=== PATIENT | female | born 1960 | race Caucasian/White ===

== ENCOUNTER 2020-03-28 09:26 | Outpatient (REF) | payer BC, SELFPAY ==
--- NOTE | 2020-03-28 08:20 | PAPFT_PTH ---
PATIENT: Catina Bunn LOC: [facility] U#:[id number] AGE/SX: 59/F ROOM: RE03/28/[address]: Eusebia Benito APRN : 1960 BED: DIS: 03/28/2020 SPEC #: [id number] RECD: 03/28/20 12:41 STATUS: ABISAI REQ #: [id number] JOY: 03/28/20 08:[address]: Eusebia Benito DEPT: [facility] Cytology RECD BY: Lola Arambula ENTERED: 03/28/20 12:42 SP TYPE: PAPFT OTHR DR: Mariela Coello MD Tissues: 1 - CX/ENDOCX FOR PAP SMEARS Procedures: PAP THIN PREP/UVM Screening HPV DNA PROBE Comments: [id number] (BRISTOW)
== END 2020-03-28 09:46 ==
LOC: LBN 09:26
PROVIDERS: PCP Family Medicine
DX: Z12.4 Encounter for screening for malignant neoplasm of cervix (principal); Z11.51 Encounter for screening for human papillomavirus (HPV)
CPT/HCPCS: 88142; 87624

== ENCOUNTER 2020-07-04 01:37 | Outpatient (CLI) | payer BC, SELFPAY ==
[2020-07-05 11:50] LABS: COVID-19 RT-PCR UVMMC Result Negative (Negative)
== END 2020-07-04 01:38 | disposition home or self-care (01) ==
LOC: LBO 01:38
PROVIDERS: PCP Family Medicine; Visit Provider Family Medicine
DX: Z20.822 Contact with and (suspected) exposure to COVID-19 (principal)
CPT/HCPCS: U0003

== ENCOUNTER 2020-07-12 16:04 | Outpatient (REF) | payer BC, SELFPAY | END 2020-07-12 16:05 | disposition home or self-care (01) | LOC: LBN 16:04 | PROVIDERS: PCP Family Medicine; Visit Provider Physician Assistant | DX: B37.89 Other sites of candidiasis (principal); L29.8 Other pruritus; N89.8 Other specified noninflammatory disorders of vagina | CPT/HCPCS: 87480; 87510; 87660 ==

== ENCOUNTER 2020-07-18 23:07 | Outpatient (REF) | payer BC, SELFPAY | END 2020-07-18 23:08 | disposition home or self-care (01) | LOC: LBN 23:07 | PROVIDERS: PCP Family Medicine; Visit Provider Physician Assistant | DX: N39.0 Urinary tract infection, site not specified (principal) | CPT/HCPCS: 87086 ==

== ENCOUNTER 2021-10-02 03:26 | Outpatient (CLI) | payer BC, SELFPAY | END 2021-10-02 03:27 | disposition home or self-care (01) | LOC: LBO 03:27 | PROVIDERS: PCP Family Medicine; Visit Provider Family Medicine ==

== ENCOUNTER 2021-10-09 04:11 | Outpatient (CLI) | payer BC, SELFPAY ==
[2021-10-09 14:28] LABS: Anion Gap 7.7 mmol/L (3-11); BUN 12 mg/dL (7-18); CO2 31.3 mmol/L (21.0-32.0); CREATININE 0.7 mg/dL (0.55-1.02); Calcium 9.6 mg/dL (8.5-10.1); Chloride 103 mmol/L (98-107); Glucose 112 mg/dL (74-106); Potassium 3.5 mmol/L (3.5-5.1); Sodium 142 mmol/L (136-145); TSH (W/Ref FT4) 1.45 uIU/mL (0.36-3.74)
[2021-10-09 17:03] LABS: Calculated LDL 164 mg/dL (<100); Cholesterol 271 mg/dL (<200); HDL Cholesterol 83 mg/dL (40-60); Triglyceride 124 mg/dL (<150)
[2021-10-10 09:52] LABS: Hepatitis C Ab w Rflx HCV PCR Negative (Negative)
[2021-10-10 10:09] LABS: HIV-1/2 Ag & Ab Screen Negative (Negative)
== END 2021-10-09 04:12 | disposition home or self-care (01) ==
LOC: LBO 04:11
PROVIDERS: PCP Family Medicine; Visit Provider Family Medicine
DX: Z00.00 Encounter for general adult medical examination without abnormal findings (principal); R00.0 Tachycardia, unspecified; Z13.220 Encounter for screening for lipoid disorders; Z11.4 Encounter for screening for human immunodeficiency virus [HIV]; Z11.59 Encounter for screening for other viral diseases
CPT/HCPCS: 36415; 80048; 80061; 86803; 87389; 84443

== ENCOUNTER 2022-11-21 13:56 | Outpatient (REF) | payer BC, SELFPAY ==
[2022-11-21 15:01] LABS: Bacteria Negative HPF (Negative); C & S Indicated? C&S Done As Ordered; Casts Negative LPF (Negative); Crystals Negative HPF (Negative); Epithelial Cells Rare HPF (Negative); Mucus Negative (Negative); RBC >50 HPF (0-2)
== END 2022-11-21 13:57 | disposition home or self-care (01) ==
LOC: NCHCN 13:56
PROVIDERS: PCP Family Medicine; Visit Provider Physician Assistant Medical
DX: R30.0 Dysuria (principal); R82.998 Other abnormal findings in urine
CPT/HCPCS: 81015; 87086

== ENCOUNTER 2023-01-29 02:46 | Outpatient (CLI) | payer BC, SELFPAY ==
[2023-01-29 14:06] LABS: Anion Gap 9.8 mmol/L (3-11); BUN 15 mg/dL (7-18); CO2 28.2 mmol/L (21.0-32.0); CREATININE 0.9 mg/dL (0.55-1.02); Calcium 9.5 mg/dL (8.5-10.1); Chloride 98 mmol/L (98-107); Estimated GFR 73.19 (mL/min/1.73m2); Glucose 132 mg/dL (74-106); Potassium 3.2 mmol/L (3.5-5.1); Sodium 136 mmol/L (136-145)
== END 2023-01-29 02:47 | disposition home or self-care (01) ==
LOC: LBO 02:46
PROVIDERS: PCP Family Medicine; Visit Provider Family Medicine
DX: I10 Essential (primary) hypertension (principal); F41.1 Generalized anxiety disorder
CPT/HCPCS: 36415; 80048

== ENCOUNTER 2023-03-20 17:10 | Outpatient (REF) | payer BC, SELFPAY ==
--- NOTE | 2023-03-20 14:20 | SKI_PTH ---
PATIENT: Catina Bunn LOC: [facility] U#:[id number] AGE/SX: 62/F ROOM: RE03/20/[address]: Ju Villareal : 1960 BED: DIS: 03/20/2023 SPEC #: [id number] RECD: 03/21/23 12:27 STATUS: ABISAI REEh #: [id number] JOY: 03/20/23 14:[address]: Ju Villareal DEPT: Surgical Specimen RECD BY: Nicki Espinosa Tissues: 1 - SKIN BIOPSY(SHAVE/PUNCH) Procedures: SKIN LEVEL 4 Comments: [id number]
== END 2023-03-20 17:11 | disposition home or self-care (01) ==
LOC: LBN 17:10
PROVIDERS: PCP Family Medicine; Visit Provider Family Medicine
DX: L82.1 Other seborrheic keratosis (principal)
CPT/HCPCS: 88305

== ENCOUNTER 2023-07-05 09:21 | Emergency (ER) | payer BC, SELFPAY ==
--- NOTE | 2023-07-05 09:15 | RT.EKG_ITS ---
APPROVED REPORT Exam: Resting ECG Reason for Exam: chest pain Patient Location: E HR:110 bpm ECG Measurements Heart Rate 110 AXIS OR 150 P 74 QRSd 76 QRS 56 QT 334 T 57 QTc 451 Conclusion Sinus tachycardia...rate> 99 Low voltage, precordial leads...precordial leads <1.0mV
[2023-07-05 09:27] VITALS: BP 139/62; PULSE 112; RESP 18; TEMP 37.4; O2SAT 96
[2023-07-05 09:54] LABS: Abs Immature Grans 0.01 10^3/uL (0.0-0.06); Absolute Basophil Count 0.01 10^3/uL (0.0-0.2); Absolute Eosinophil Count 0.03 10^3/uL (0.0-0.7); Absolute Monocyte Count 0.17 10^3/uL (0.1-0.8); Absolute Neutrophil Count 1.51 10^3/uL (1.2-6.7); Basophils % 0.4; Eosinophils % 1.3; Immature Grans % 0.4; Lymphocytes % 22.4; MCH 31.8 pg (27.0-33.0); MCHC 33.1 % (32.0-36.0); MCV 96 fL (80-95); MPV 10.1 fL (8.0-11.0); Monocytes % 7.6; Neutrophils % 67.9; RBC 1.48 10^6/uL (3.93-5.22); RDW 11.8 % (11.7-14.6); RDW-SD 41.1 fL; WBC 2.23 10^3/uL (4.4-10.8)
--- NOTE | 2023-07-05 10:00 | W.ED.GENAD ---
HPI General Date/Time Provider Initiated Documentation: 07/05/23 09:23. HPI Narrative: This 62-year-old female presents with acute onset of shortness of breath, lightheadedness, racing heartbeat at approximately 45 minutes prior to arrival. She called EMS was administered adenosine with a reported rhythm of SVT prior to arrival. Patient was alert and oriented at time of initial assessment She states she has had similar episodes x 2 over the course of the past year. She denies caffeine or onset during exertion. That she was seated at her desk when her symptoms began today. She denies any stressors caffeine consumption today. She has recent lites, surgeries, long drives. She denies any chest pain associated. She states that she exercises regularly and has not had any exertional chest pain or shortness of breath. She has a history of hypertension but no history of hyperlipidemia and no early family history of coronary artery disease. At time of my assessment she is asymptomatic with sinus tachycardia Related Data Home Medications Medication Instructions Recorded Confirmed amitriptyline 25 mg tablet 25 mg PO DAILY #90 tabs 09/19/22 03/20/23 venlafaxine 75 mg capsule,extended 75 mg PO DAILY #90 caps 09/19/22 03/20/23 release 24 hr ondansetron HCl 4 mg tablet 4 mg PO Q8H PRN nausea and 02/22/23 03/20/23 vomiting #30 tabs losartan 50 mg-hydrochlorothiazide 1 tab PO DAILY #90 tabs 05/03/23 12.5 mg tablet Previous Rx's Medication Instructions Recorded amitriptyline 25 mg tablet 25 mg PO DAILY #90 tabs 09/19/22 venlafaxine 75 mg capsule,extended 75 mg PO DAILY #90 caps 09/19/22 release 24 hr ondansetron HCl 4 mg tablet 4 mg PO Q8H PRN nausea and 02/22/23 vomiting #30 tabs losartan 50 mg-hydrochlorothiazide 1 tab PO DAILY #90 tabs 05/03/23 12.5 mg tablet Allergies Allergy/AdvReac Type Severity Reaction Status Date / Time No Known Allergies Allergy Verified 03/20/23 15:47 General Stated Complaint: Palpitatns BRANDON: 2 Course Vital Signs Vital signs: Vital Signs Temperature 37.4 C 07/05/23 09:27 Pulse 112 H 07/05/23 09:27 Respiratory Rate 18 07/05/23 09:27 Blood Pressure 139/62 07/05/23 09:27 Pulse Oximetry 96 07/05/23 09:27 Temperature 37.4 C 07/05/23 09:27 Temperature Source Tympanic 07/05/23 09:27 Pulse 112 H 07/05/23 09:27 Respiratory Rate 18 07/05/23 09:27 Respiratory Effort Normal 07/05/23 09:31 Blood Pressure 139/62 07/05/23 09:27 Blood Pressure Position Sitting 07/05/23 09:27 Pulse Oximetry 96 07/05/23 09:27 Oxygen Delivery Method Room Air 07/05/23 09:27 Oxygen Flow Rate 0 07/05/23 09:27 Pain Level 0 07/05/23 09:27 Medical Decision Making This 62-year-old female presents with reported SVT by EMS received 6 mg of adenosine en route with resolution of symptoms into sinus tachycardia At no point during patient's episode did she have any chest discomfort and she is relatively healthy, so again the suspicion clinically for CAD component to patient's complaints On arrival patient is sinus tachycardia, she is alert and oriented and her vitals are otherwise stable She states she has had 2 episodes similar to this in the past all lasting less than 30 minutes Patient denies any new meds and caffeine States she has never mentioned the symptoms to her doctor in the past Remote history of breast cancer, not currently on intervention Diagnostic labs were drawn initially and markedly abnormal so these were repeated and there appears to be an error, labs are all within normal limits, this is consistent with patient's prior labs performed at this facility and I am comfortable with relating these to the patient Patient does not clinically appear anemic and is active and otherwise healthy, low suspicion that these first set of labs are accurate Please disregard Patient was observed for approximately 2 and half hours in the emergency department, she did not have return of SVT I did consult with her primary care physician, Dr. Villareal and she will follow-up with patient closely She will need an outpatient Holter monitor Of note she is leaving for [employer] in the next 2 weeks, I will hold on prescribing medication pending PCP recheck Return precautions were reviewed and patient expressed understanding, discharged home in stable condition with stable vitals Quality:SDOH Health Related Social Needs: No Data to Display PFSH All Active Problems (Updated 07/05/23 @ 12:03 by PABLO Mendes) SVT (supraventricular tachycardia) (Chronic) Paroxysmal SVT (supraventricular tachycardia) (Acute) Generalized anxiety disorder (Chronic) Lymphedema of right upper extremity (Acute) post lumpectomy / axillary dissection. Essential hypertension (Acute) Chronic daily headache (Acute) right frontotemporal, managed with amitriptyline with good effect. 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 1 out of 4 sentinel lymph nodes positive ER positive, TX positive, HER-2 negative. Followed at [facility]. Surgical History History of appendectomy History of section Status post bilateral salpingo-oophorectomy (BSO) complicated by bowel perforation Status post tonsillectomy Family History Aunt Breast cancer treated with mastectomy Father Heart disease Mother Anxiety Social History (Updated 09/20/22 @ 16:10 by Keke Lucas) Smoking/Tobacco Use Status: Never Second Hand Exposure: No Smoking risk assessment performed?: Yes Alcohol Intake: current Alcohol Intake frequency: a few times a week Alcohol type: wine Drug use: Never Substance use type: does not use Counseling given: No Counseling provided: none Caregiver/Support person: No Household members: spouse Housing: house Number of Children: 2 Communication Needs: None Education Level: master's degree Do you need help understanding health information?: Never current occupation: teacher at [employer] Hands, Georgian Pets and animals: No Sexually active: Yes Do you think of yourself as: straight/heterosexual Current gender identity: female What is your relationship status?: How often do you talk on the phone with friends or family?: three or more times per week How often do you get together with friends or relatives?: twice per week How often do you attend restoration or mandaen services?: 1-3 times per year Do you belong to any clubs or organized social groups?: no Panel score (0-1 are the most socially isolated patients): 2 What type of physical activity do you participate in: walking Duration: 15-30 minutes/day Frequency: 1-2 times per week Stephanie/Restorationist: Tenriism Seatbelt use: always Helmet use: Yes Helmet use: sometimes Drive intox or ride w/intox high lift driver: No Do you feel safe at home: Yes Do you feel safe in your relationship?: Yes Additional Social history: Enjoys snowshoeing, bicycling. Discharge Plan Disposition Patient Disposition: Home Condition: Stable Discharge Details Clinical Impression: SVT (supraventricular tachycardia) Primary Care Provider: Ju Villareal ED Provider: Nicki Dominguez Home Meds and New Rx's Prescriptions: Continued amitriptyline 25 mg tablet 25 mg PO DAILY Qty: 90 3RF venlafaxine 75 mg capsule,extended release 24hr 75 mg PO DAILY Qty: 90 3RF ondansetron HCl 4 mg tablet 4 mg PO Q8H PRN (Reason: nausea and vomiting) Qty: 30 4RF losartan-hydrochlorothiazide 50-12.5 mg tablet 1 tab PO DAILY Qty: 90 1RF Discharge Instructions Additional Instructions: follow-up with pcp for recheck next week Dr Villareal will follow-up regarding holter monitor and echocardiogram contnue with prescribed medications be sure to mention your vacation with follow-up next week please return with recurrence of symptoms or should any new concerns arise Referrals: Ju Villareal MD [Primary Care Provider] - Discharge Data Discharge Date/Time-TO BE ENTERED AT DEPARTURE: 07/05/23 12:12
[2023-07-05 10:05] LABS: HGB 4.7 g/dL (11.2-15.7)
[2023-07-05 10:06] LABS: HCT 14.2 % (36.0-46.0)
[2023-07-05 10:26] LABS: Diff Comment Diff Reviewed; Hypochromasia 2+; Platelet Count 67 10^3/uL (130-400)
[2023-07-05] MEDS: Normal Saline 1,000 ML 1000 ML IV (10:27)
[2023-07-05 10:29] LABS: Bilirubin Negative (Negative); Blood Trace-intact (Negative); Clarity Clear (Clear); Glucose Negative (Negative); Ketones Negative (Negative); Leukocyte Esterase Trace (Negative); Nitrite Negative (Negative); Specific Gravity 1.015 (1.005-1.025); Urobilinogen 0.2 mg/dL (Up to 0.2)
[2023-07-05 10:32] LABS: Abs Immature Grans 0.05 10^3/uL (0.0-0.06); Absolute Basophil Count 0.06 10^3/uL (0.0-0.2); Absolute Eosinophil Count 0.04 10^3/uL (0.0-0.7); Absolute Lymphocyte Count 1.67 10^3/uL (1.2-3.4); Absolute Monocyte Count 0.71 10^3/uL (0.1-0.8); Absolute Neutrophil Count 6.51 10^3/uL (1.2-6.7); Basophils % 0.7; Eosinophils % 0.4; HCT 43.1 % (36.0-46.0); Immature Grans % 0.6; Lymphocytes % 18.5; MCH 31.3 pg (27.0-33.0); MCHC 34.1 % (32.0-36.0); MCV 92 fL (80-95); MPV 10.5 fL (8.0-11.0); Monocytes % 7.9; Neutrophils % 71.9; Platelet Count 223 10^3/uL (130-400); RBC 4.69 10^6/uL (3.93-5.22); RDW 11.8 % (11.7-14.6); RDW-SD 39.5 fL; WBC 9.04 10^3/uL (4.4-10.8)
[2023-07-05 10:37] LABS: ALT 18 U/L (14-59); AST 13 U/L (15-37); Albumin 1.7 g/dL (3.4-5.0); Alkaline Phosphatase 21 U/L (46-116); BUN 10 mg/dL (7-18); Bilirubin, Total 0.3 mg/dL (0.2-1.0); CREATININE 0.4 mg/dL (0.55-1.02); Chloride 122 mmol/L (98-107); Estimated GFR 113.24 (mL/min/1.73m2); Glucose 73 mg/dL (74-106); Magnesium 0.9 mg/dL (1.8-2.4); TSH (W/Ref FT4) 0.72 uIU/mL (0.36-3.74); Total Protein 3.1 g/dL (6.4-8.2)
[2023-07-05 10:41] LABS: HGB 14.7 g/dL (11.2-15.7)
[2023-07-05 10:42] LABS: Sodium 151 mmol/L (136-145)
[2023-07-05 10:44] LABS: Calcium < 5.0 mg/dL (8.5-10.1); Potassium 1.6 mmol/L (3.5-5.1)
[2023-07-05 10:55] LABS: Bacteria Rare HPF (Negative); C & S Indicated? No; Casts 0-2 Hyaline LPF (Negative); Crystals Negative HPF (Negative); Epithelial Cells Negative HPF (Negative); Mucus Trace (Negative)
[2023-07-05 11:12] LABS: Anion Gap 9.9 mmol/L (3-11); BUN 20 mg/dL (7-18); CO2 29.1 mmol/L (21.0-32.0); CREATININE 0.9 mg/dL (0.55-1.02); Chloride 105 mmol/L (98-107); Estimated GFR 73.19 (mL/min/1.73m2); Glucose 87 mg/dL (74-106); Sodium 144 mmol/L (136-145)
[2023-07-05 11:13] LABS: Potassium 3.8 mmol/L (3.5-5.1)
[2023-07-05 11:48] VITALS: BP 127/63; PULSE 100; RESP 16; O2SAT 97
[2023-07-05 11:54] LABS: Magnesium 2.1 mg/dL (1.8-2.4)
== END 2023-07-05 12:12 | disposition home or self-care (01) ==
LOC: ER 12:25
PROVIDERS: Emergency Provider Physician Assistant; PCP Family Medicine
DX: R00.0 Tachycardia, unspecified (principal); R06.02 Shortness of breath; R42 Dizziness and giddiness; I10 Essential (primary) hypertension
CPT/HCPCS: 36415; 80048; 80053; 86850; 86900; 86901; 93005; 99283; 81003; 81015; 83735; 84443; 85025; 86870; 93010

== ENCOUNTER → 2023-07-25 01:33 | Outpatient (CLI) | payer BC, SELFPAY ==
--- NOTE | 2023-07-25 08:30 | DI.US_ITS ---
APPROVED REPORT EXAM: Comprehensive 2D, Doppler, and color-flow Echocardiogram Patient Location: Out-Patient [employer] [employer] Manufacture: Edison Escalante RDCS (AE) Indications: SVT, heart murmur Conclusion Normal left ventricular wall thickness and chamber size. Ejection fraction is 55-60%t. Wall motion is normal Normal right ventricular size and function Both atria are normal in size There is no structural or hemodynamically significant valvular disease Wall motion Left Ventricle The left ventricle is normal size. The left ventricular systolic function is normal. The left ventric ular ejection fraction is within the normal range. There is normal left ventricular wall thickness. T here is normal LV segmental wall motion. There is no ventricular septal defect visualized. LVEF is 55 -60%. Right Ventricle The right ventricle is normal size. The right ventricular systolic function is normal. Atria The left atrium size is normal. The right atrium size is normal. The interatrial septum is intact wit h no evidence for an atrial septal defect. Aortic Valve The aortic valve is normal in structure. Aortic valve is trileaflet. There is no aortic valvular sten osis. No aortic regurgitation is present. Mitral Valve The mitral valve is normal in structure. No evidence of mitral valve stenosis. Trivial mitral valve r egurgitation noted. Tricuspid Valve The tricuspid valve is normal in structure. There is no tricuspid valve stenosis. Trace tricuspid reg urgitation. The RVSP is 32.0 mmHg. Pulmonic Valve The pulmonary valve is normal in structure. There is no pulmonic valvular stenosis. There is no pulmo ulysses valvular regurgitation. Great Vessels The aortic root is normal in size. The ascending aorta is normal in size. Aortic arch is normal in ca liber. IVC is normal in size and collapses >50% with inspiration. Pericardium There is no pericardial effusion. 2D Dimensions IVSD d PLAX 0.75 cm F: 0.6-1.0 Ao Root d 2.59 cm F: 2.7 - 3.3 LVPW d PLAX 0.70 cm F: 0.6 - 1.0 Ao Asc Diam d 2.87 cm F: 2.3 - 3.1 LVID d PLAX 5.18 cm F: 3.8 - 5.2 LVDs 3.63 cm F: 2.2 - 3.5 LV EF Teichholz 56.7 % FS 29.89 % LV EDV (Teich) 128.2 mL LV ESV (Teich) 55.5 mL Stroke Vol Index (Teich) 45.71 M-Mode TAPSE 1.90 cm (M/F) >1.7 Auto EF LV EDV A4C 89.3 mL LV EDV A2C 91.1 mL LV EDV BP 92.0 mL LV ESV A4C 37.3 mL LV ESV A2C 37.4 mL LV ESV BP 36.7 mL LVEF(%) A4C 58.3 % LVEF(%) A2C 58.9 % LVEF(%) BP 60.1 % LV SV A4C 52.1 ml LV SV A2C 53.7 ml LV SV BP 55.3 ml LV CO A4C 3.5 L/min LV CO A2C 3.8 L/min LV CO BP 3.7 L/min HR A4C 68.05 BPM HR A2C 70.29 BPM LV EDV Index (BP) LA Volume LA Length A4C 3.8 cm LA Length A2C 4.2 cm LA Area A4C s 8.42 cm2 LA Area A2C s 10.86 cm2 LA Vol A4C A-L 15.92 mL LA Vol A2C A-L 24.06 mL LA Vol Biplane A-L 20.5 mL LA Vol/BSA A4C A-L LA Vol/BSA A2C A-L LA Vol/BSA BP A-L 12.9 mL/m2 LA Vol A4C MOD 15.6 mL LA Vol A2C MOD 23.5 mL LA Vol BP MOD 19.8 mL RA Volume RA Area A4C 6.0 cm2 RA ESV A4C (A-L) 10.0mL RA Vol/BSA A4C A-L RA Length A4C 3.1 cm RA ESV A4C (MOD) 9.4mL LV Diastology MV E' medial 0.087 (>0.07 m/s) MV E Vmax 0.81 (0.4-1.3 m/s) MV E/E' MED 9.27 (<14) MV A Vmax 0.65 (0.4-1.3 m/s) MV E' lateral 0.082 (>0.1 m/s) E/A Ratio 1.2 MV E/E' LAT 9.88 (<14) MV E' Average 0.085 m/s MV E/E'(average) 9.57 Aortic Valve AoV Vmax 0.97 m/s LVOT Vmax 0.78 m/s AoV Peak Grad 3.8 mmHg LVOT Peak Grad 2.5 mmHg AoV Area (Vmax) 2.58 cm2 LVOT VTI 0.192 m AoV VTI 0.237 m LVOT Mean Grad 1.5 mmHg AoV Mean You. 0.70 m/s LVOT SV 61.05 mL AoV Mean Grad 2.2 mmHg LVOT Diam s 2.00 cm AoV Area (VTI) 2.57 cm2 Velocity Ratio 0.80 Mitral Valve MV DT 182 (160-240 msec) Pulmonary Valve PV Vmax 0.78 (0.5-1.5 m/s) RVOT Vmax 0.57 m/s PV Peak Grad 2.4 mmHg RVOT Peak Gr. 1.3 mmHg PV Mean You 0.54 m/s RVOT VTI 0.109 m PV Mean Grad 1.4 mmHg RVOT Mean Gr. 0.8 mmHg Tricuspid Valve RA Pressure 3.00 mmHg TR Vmax 2.69 m/s TR Peak Grad 29.0 mmHg RVSP (TR) 32.0 mmHg
== END ==
PROVIDERS: PCP Family Medicine; Visit Provider Family Medicine
DX: R01.1 Cardiac murmur, unspecified (principal); I47.10 Supraventricular tachycardia, unspecified
CPT/HCPCS: 93306

== ENCOUNTER 2023-08-08 15:01 | Outpatient (RCR) | payer BC, SELFPAY ==
--- NOTE | 2023-08-09 13:45 | HOLTER_ITS ---
APPROVED REPORT Conclusion This is a 48-hour Holter monitor Rhythm throughout was sinus with an average heart rate of 73. Minimum heart rate was 57, maximum 101 There were 2 isolated PVCs There were 12 atrial premature beats There was 1 run of SVT, 12 beats in length, occurred at 3 AM and was asymptomatic There was no atrial fibrillation, no high-grade AV block, no pauses greater than 3 seconds
== END 2023-08-18 23:59 | disposition home or self-care (01) ==
LOC: CARDOPNVT 15:01
PROVIDERS: PCP Family Medicine; Visit Provider Internal Medicine Cardiovascular Disease
DX: I47.10 Supraventricular tachycardia, unspecified (principal)
CPT/HCPCS: 93225; 93226

== ENCOUNTER 2023-09-24 05:48 | Outpatient (CLI) | payer BC, SELFPAY ==
[2023-09-24 17:13] LABS: ALT 36 U/L (14-59); AST 19 U/L (15-37); Alkaline Phosphatase 55 U/L (46-116); Anion Gap 10.1 mmol/L (3-11); BUN 19 mg/dL (7-18); Bilirubin, Total 0.4 mg/dL (0.2-1.0); CO2 29.9 mmol/L (21.0-32.0); Calcium 9.2 mg/dL (8.5-10.1); Chloride 101 mmol/L (98-107); Estimated GFR 64.49 (mL/min/1.73m2); Glucose 95 mg/dL (74-106); Potassium 3.7 mmol/L (3.5-5.1); Sodium 141 mmol/L (136-145); Total Protein 7.5 g/dL (6.4-8.2)
== END 2023-09-24 05:49 | disposition home or self-care (01) ==
PROVIDERS: PCP Family Medicine; Visit Provider Family Medicine
DX: Z00.00 Encounter for general adult medical examination without abnormal findings (principal); I10 Essential (primary) hypertension
CPT/HCPCS: 36415; 80053

== ENCOUNTER 2024-05-25 02:16 | Outpatient (CLI) | payer BC, SELFPAY ==
--- NOTE | 2024-05-25 16:11 | DI.RAD_ITS ---
Exam(s) XR RIBS RT W PA LAT CHEST EXAM: XR RIBS RT W PA LAT CHEST CLINICAL HISTORY: rt rib pain with no injury,PLEURODYNIA,R07.81 TECHNIQUE: 2D digital imaging was performed. COMPARISON: No exams were available for comparison FINDINGS: Total = 6 views RIBS 4 VIEWS-RIGHT There are no right rib fractures evident. No lytic nor blastic rib lesions identified. CXR- 2 VIEWS: No lung infiltrates nor contusion or pneumothorax. There is mild blunting of the right costophrenic angle seen on 1 image. May indicate a small amount of pleural fluid. Heart size is normal and there is no significant mediastinal widening. IMPRESSION: 1. No right rib fractures evident. Also no significant rib lesions. 2. Possible very small right pleural effusion. DATA REPOSITORY: RADIATION DOSE DELIVERED:
== END 2024-05-25 02:36 ==
LOC: DI 02:16
PROVIDERS: PCP Family Medicine; Visit Provider Nurse Practitioner Family
DX: R07.81 Pleurodynia (principal); R91.8 Other nonspecific abnormal finding of lung field
CPT/HCPCS: 71046; 71100

== ENCOUNTER 2024-10-02 12:54 | Outpatient (REF) | payer BC, SELFPAY ==
--- NOTE | 2024-10-02 13:30 | PAPFT_PTH ---
PATIENT: Catina Bunn LOC: [facility] U#:[id number] AGE/SX: 63/F ROOM: RE10/02/[address]: Ju Villareal : 1960 BED: DIS: 10/02/2024 SPEC #: [id number] RECD: 10/05/24 13:00 STATUS: ABISAI GUILLORY #: [id number] JOY: 10/02/24 13:[address]: Ju Villareal DEPT: [facility] Cytology RECD BY: Nicki Espinosa Tissues: 1 - CX/ENDOCX FOR PAP SMEARS Procedures: PAP THIN PREP/UVM Screening HPV DNA PROBE Comments: [id number] (HPV 16 & 18/45)
== END 2024-10-02 12:55 | disposition home or self-care (01) ==
LOC: LBN 12:54
PROVIDERS: PCP Family Medicine; Visit Provider Family Medicine
DX: Z11.51 Encounter for screening for human papillomavirus (HPV) (principal); Z01.419 Encounter for gynecological examination (general) (routine) without abnormal findings
CPT/HCPCS: 88142; 87624

== ENCOUNTER 2025-04-13 01:46 | Outpatient (CLI) | payer BC, SELFPAY ==
[2025-04-13 10:51] LABS: Anion Gap 8.7 mmol/L (3-11); BUN 18 mg/dL (9-23); CO2 28.3 mmol/L (20.0-31.0); Calcium 9.3 mg/dL (8.3-10.6); Chloride 103 mmol/L (98-107); Cholesterol 294 mg/dL (<200); Glucose 125 mg/dL (74-106); HDL Cholesterol 74 mg/dL (>40); Potassium 3.7 mmol/L (3.5-5.1); Sodium 140 mmol/L (136-145)
== END 2025-04-13 01:47 | disposition home or self-care (01) ==
LOC: LBO 01:46
PROVIDERS: PCP Family Medicine; Visit Provider Family Medicine
DX: I47.10 Supraventricular tachycardia, unspecified (principal); Z13.6 Encounter for screening for cardiovascular disorders; Z01.30 Encounter for examination of blood pressure without abnormal findings; I10 Essential (primary) hypertension
CPT/HCPCS: 36415; 80048; 80061